=== PATIENT | female | born 1995 | race Caucasian/White ===

== ENCOUNTER 2016-05-07 05:52 | Emergency (ER) ==
[2016-05-07 06:03] VITALS: BP 106/73; TEMP 97; BMI 21.8
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
== END 2016-05-07 06:30 | disposition home or self-care (01) ==
LOC: ED 05:52
DX: L03.113 Cellulitis of right upper limb (principal)
CPT/HCPCS: 99282

== ENCOUNTER 2016-05-10 19:40 | Emergency (ER) ==
[2016-05-10 19:40] VITALS: BMI 21.8
[2016-05-10 19:48] VITALS: BP 134/86; TEMP 99.2
[2016-05-10] MEDS ORDERED: SOLU-MEDROL 125 MG IM STA (20:05)
[2016-05-10] MEDS ORDERED: BENADRYL PO STA (20:06)
[2016-05-10] MEDS ORDERED: ZANTAC PO STA (20:06)
[2016-05-10] MEDS ORDERED: CLARITIN PO STA (20:06)
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
== END 2016-05-10 20:40 | disposition home or self-care (01) ==
LOC: ED 19:40
DX: L50.9 Urticaria, unspecified (principal)
CPT/HCPCS: 96372; 99282

== ENCOUNTER 2016-06-03 20:06 | Emergency (ER) ==
[2016-06-03 20:18] VITALS: BP 121/86; TEMP 100; BMI 21.4
[2016-06-03] MEDS ORDERED: SOLU-MEDROL 125 MG IM STA (20:40)
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
== END 2016-06-03 21:05 | disposition home or self-care (01) ==
LOC: ED 20:06
DX: L56.8 Other specified acute skin changes due to ultraviolet radiation (principal)
CPT/HCPCS: 96372; 99282

== ENCOUNTER 2016-09-16 21:50 | Emergency (ER) ==
[2016-09-16] MEDS ORDERED: SODIUM CHLORIDE 1,000 ML IV STA (21:51)
[2016-09-16 21:58] LABS: BASOPHILS # (AUTO) 0.1 K/uL (0-0.2); BASOPHILS % (AUTO) 0.6 % (0.0-3.0); EOSINOPHILS # (AUTO) 0.1 K/ul (0.0-0.7); EOSINOPHILS % (AUTO) 1.5 % (0.0-7.0); HEMATOCRIT 39.4 % (37.0-47.0); HEMOGLOBIN 13.5 g/dl (12.0-16.0); IMMATURE GRANULOCYTE % (AUTO) 0.2 % (0.0-5.0); LYMPHOCYTES # (AUTO) 2.4 K/uL (0.60-3.4); LYMPHOCYTES % (AUTO) 27.3 (10.0-50.0); MEAN CORPUSCULAR HEMOGLOBIN 29.9 pg (27.0-31.0); MEAN CORPUSCULAR HGB CONC 34.3 (31.8-35.4); MEAN CORPUSCULAR VOLUME 87.2 fl (81.0-99.0); MONOCYTES # (AUTO) 0.6 K/uL (0.4-2.0); MONOCYTES % (AUTO) 6.6 (0-10); NEUTROPHILS # (AUTO) 5.6 K/ul (2.0-6.9); NEUTROPHILS % (AUTO) 63.8; PLATELET COUNT 253 10^3/uL (140-440); RED BLOOD COUNT 4.52 10^6/ul (4.20-5.40); WHITE BLOOD COUNT 8.83 K/ul (4.6-10.2)
[2016-09-16 22:02] VITALS: BP 129/92; TEMP 99.6; BMI 19.5
[2016-09-16 22:14] LABS: ADD URINE MICROSCOPIC YES; BILIRUBIN,URINE 1+ (NEGATIVE); KETONES,URINE Trace (NEGATIVE); LEUKOCYTE ESTERASE ,URINE Negative (NEGATIVE); NITRITE,URINE Negative (NEGATIVE); PROTEIN,URINE Trace (NEGATIVE); URINE, BLOOD Negative (NEGATIVE)
[2016-09-16 22:15] LABS: SERUM PREGNANCY INTERNAL QC INTERNAL QC VALID
[2016-09-16 22:19] LABS: ALBUMIN 4.4 g/dL (3.4-5.0); ALBUMIN/GLOBULIN RATIO 1.38; ANION GAP 14.5; BILIRUBIN,TOTAL 0.89 mg/dL (0.00-1.20); BUN/CREATININE RATIO 5.26; CALCIUM 9.2 mg/dL (8.2-10.2); CREATININE 0.76 mg/dL (0.60-1.30); POTASSIUM 3.5 mmol/L (3.5-5.10); TOTAL PROTEIN 7.6 g/dL (6.4-8.2)
[2016-09-16 22:31] LABS: ERYTHROCYTE SEDIMENTATION RATE 5 mm/hr (0-20); ESR INTERNAL QC INTERNAL QC VALID
--- NOTE | 2016-09-16 23:13 | CT ---
EXAM: CT of the abdomen and pelvis with and without IV contrast. HISTORY: Right lower quadrant pain. PROCEDURE: Contiguous axial CT images of the abdomen and pelvis with and without IV contrast with c oronal and sagittal reformats. FINDINGS: The liver, gallbladder, pancreas, spleen, adrenal glands and kidneys are normal in appear ance. The abdominal aorta is normal in appearance. The appendix is not visualized. The other visual ized loops of bowel are normal in appearance. No free air in the abdomen or pelvis. The bladder is decompressed which limits the evaluation. The uterus is unremarkable. There are prominent uterine veins. There is a 1.7 cm fluid density cyst in the right adnexa. There is minimal free fluid in th e cul-de-sac. The bones and soft tissues are unremarkable. Impression: The appendix is not visualized. Appendicitis cannot be excluded. 1.7 cm simple right adnexal cyst. Minimal free fluid in the cul-de-sac. Prominent uterine veins suspicious for pelvic congestion syndrome.
[2016-09-16] MEDS ORDERED: TORADOL ONE (23:22)
[2016-09-16] MEDS ORDERED: TORADOL IVP STA (23:22)
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
== END 2016-09-16 23:45 | disposition home or self-care (01) ==
LOC: ED 21:50
DX: N83.209 Unspecified ovarian cyst, unspecified side (principal)
CPT/HCPCS: 36415; 80053; 81001; 82150; 83690; 84703; 85025; 85651; 96361; 96374; 99283

== ENCOUNTER 2017-01-30 12:03 | Outpatient (CLI) ==
[2017-01-30 12:39] LABS: BASOPHILS % (AUTO) 0.3 % (0.0-3.0); EOSINOPHILS # (AUTO) 0.1 K/ul (0.0-0.7); EOSINOPHILS % (AUTO) 2.2 % (0.0-7.0); HEMATOCRIT 40.9 % (37.0-47.0); HEMOGLOBIN 14.2 g/dl (12.0-16.0); IMMATURE GRANULOCYTE % (AUTO) 0.2 % (0.0-5.0); LYMPHOCYTES # (AUTO) 1.7 K/uL (0.60-3.4); LYMPHOCYTES % (AUTO) 28.7 (10.0-50.0); MEAN CORPUSCULAR HEMOGLOBIN 30.5 pg (27.0-31.0); MEAN CORPUSCULAR HGB CONC 34.7 (31.8-35.4); MONOCYTES # (AUTO) 0.4 K/uL (0.4-2.0); MONOCYTES % (AUTO) 7.3 (0-10); NEUTROPHILS # (AUTO) 3.6 K/ul (2.0-6.9); NEUTROPHILS % (AUTO) 61.3; PLATELET COUNT 233 10^3/uL (140-440); RED BLOOD COUNT 4.65 10^6/ul (4.20-5.40); WHITE BLOOD COUNT 5.89 K/ul (4.6-10.2)
[2017-01-30 12:45] LABS: URINE PREGNANCY INTERNAL QC INTERNAL QC VALID
[2017-01-30 12:58] LABS: ALBUMIN 4.1 g/dL (3.4-5.0); ALBUMIN/GLOBULIN RATIO 1.05; ANION GAP 13.4; BILIRUBIN,TOTAL 0.92 mg/dL (0.00-1.20); BUN/CREATININE RATIO 6.49; CALCIUM 9.1 mg/dL (8.2-10.2); CREATININE 0.77 mg/dL (0.60-1.30); POTASSIUM 3.4 mmol/L (3.5-5.10)
== END 2017-01-30 12:04 | disposition home or self-care (01) ==
LOC: RAD 12:03 → LAB 12:04
PROVIDERS: ATTEND Nurse Practitioner Family
DX: R10.84 Generalized abdominal pain (principal); N93.9 Abnormal uterine and vaginal bleeding, unspecified
CPT/HCPCS: 36415; 80053; 81025; 82150; 83690; 85025

== ENCOUNTER 2017-01-30 15:01 | Emergency (ER) ==
[2017-01-30 15:11] VITALS: BP 127/85; TEMP 97.3; BMI 20.7
--- NOTE | 2017-01-30 16:16 | US ---
EXAM: Transvaginal pelvic ultrasound HISTORY: Pelvic pain and irregular periods COMPARISON: CT abdomen pelvis 09/16/2016 TECHNIQUE: Transvaginal pelvic ultrasound was performed to better evaluate the structures. Limited Doppler was provided. FINDINGS: The uterus measures 6.8 x 2.6 x 4.1 cm. The endometrium measures 0.3 cm in thickness. Cer vix is normal in appearance. The right ovary measures 3.3 x 1.7 x 1.6 cm. There is normal color Doppler flow. The left ovary measures 3.0 x 1.9 x 1.7 cm. There is normal color Doppler flow. There are bilateral f ollicles present. There is mild free fluid. IMPRESSION: 1. Mild nonspecific free fluid is noted in the pelvis. 2. No additional sonographic abnormality is identified.
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
--- NOTE | 2017-01-30 16:47 | CT ---
EXAM: CT abdomen pelvis with intravenous contrast 01/30/2017. Sagittal and coronal reformatted imag es obtained HISTORY: Abdominal pain COMPARISON: 09/16/2016 FINDINGS: The liver and gallbladder show no acute process. The adrenal glands and kidneys show no acute abnormality. The spleen and pancreas show no acute proc ess. There is no evidence of bowel obstruction. The appendix is visualized and appears normal. There is a small quantity of nonspecific free fluid the pelvis. Mild thickening of the urinary bladder wall. Correlate clinically for possible cystitis. IMPRESSION: 1. Thickening of the urinary bladder wall. Correlate clinically for possible cystitis. 2. Small quantity of free fluid within the dependent aspect of the pelvis. 3. No urinary or bowel obstruction. Normal appendix.
[2017-01-30 17:23] LABS: BILIRUBIN,URINE Negative (NEGATIVE); KETONES,URINE Negative (NEGATIVE); LEUKOCYTE ESTERASE ,URINE Negative (NEGATIVE); NITRITE,URINE Negative (NEGATIVE); PH,URINE 8.5 (5-9); PROTEIN,URINE Negative (NEGATIVE); URINE, BLOOD 2+ (NEGATIVE)
[2017-01-30 17:25] LABS: ADD URINE MICROSCOPIC YES
== END 2017-01-30 17:38 | disposition home or self-care (01) ==
LOC: ED 15:01
DX: R10.9 Unspecified abdominal pain (principal)
CPT/HCPCS: 81001; 99283

== ENCOUNTER 2017-03-18 11:55 | Outpatient (CLI) ==
[2017-03-18 13:17] VITALS: BMI 20.5
== END 2017-03-18 11:56 | disposition left against medical advice (07) ==
LOC: AMBL 11:55
PROVIDERS: ATTEND Internal Medicine
DX: M25.619 Stiffness of unspecified shoulder, not elsewhere classified (principal); V48.5XXA Car driver injured in noncollision transport accident in traffic accident, initial encounter

== ENCOUNTER 2017-03-18 13:13 | Emergency (ER) ==
[2017-03-18 13:17] VITALS: BP 136/87; TEMP 97.8; BMI 20.5
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
== END 2017-03-18 14:02 | disposition home or self-care (01) ==
LOC: ED 13:13
DX: S43.402A Unspecified sprain of left shoulder joint, initial encounter (principal); V89.2XXA Person injured in unspecified motor-vehicle accident, traffic, initial encounter
CPT/HCPCS: 99283